=== PATIENT | male | born 1960 | race Caucasian/White ===

== ENCOUNTER 2021-05-29 13:00 | Emergency (ER) | payer OTHER, SELFPAY ==
[2021-05-29 13:11] VITALS: BP 154/92; PULSE 90; RESP 18; TEMP 37.6; O2SAT 98
--- NOTE | 2021-05-29 13:21 | ED.DENTAL ---
HPI - Dental/Oral General Chief complaint: Dental/Oral Stated complaint: tooth inf Source: patient Mode of arrival: ambulatory Limitations: no limitations History of Present Illness HPI Narrative: Patient is a 61-year-old male who presents for left lower dental pain and swelling. He reports he believes he chipped a tooth. Patient reports dental pain started proximately 2 days ago. He reports taking Tylenol ibuprofen with limited relief. He reports last p.m. swelling to left jaw. He denies fever. He denies all other complaints at this time. Related Data Home Medications Medication Instructions Recorded Confirmed No Home Medications 05/29/21 05/29/21 Allergies Allergy/AdvReac Type Severity Reaction Status Date / Time No Known Allergies Allergy Verified 05/29/21 13:23 MEPERIDINE HCL AdvReac Severe SEVERE N/V Uncoded 05/29/21 13:23 POST COLONSCOPY ANESTHESIA Review of Systems Review of Systems: CONSTITUTIONAL: Denies fever, chills, or sweats. EYES: Denies visual changes, redness, or discharge. ENT: Denies rhinorrhea, congestion, sore throat, or otalgia. Reports dental pain and swelling CARDIOVASCULAR: Denies chest pain, palpitations, or edema. RESPIRATORY: Denies cough or dyspnea. GASTROINTESTINAL: Denies abdominal pain, nausea, vomiting, or diarrhea. GENITOURINARY: Denies dysuria or hematuria. SKIN: Denies rash or itching. MUSCULOSKELETAL: Denies back pain, joint pain, or myalgia. NEUROLOGIC: Denies headache, numbness, dizziness, or weakness. PSYCHIATRIC: Denies anxiety or depression. [facility] Past Medical History Medical History Anxiety Colonic diverticular abscess Diverticulitis Family History Family History (Updated 05/29/21 @ 14:21 by ENRIQUETA Farrell) Other Diabetes mellitus Heart disease Social History Social History (Updated 05/29/21 @ 14:21 by ENRIQUETA Farrell) Smoking status: Never smoker Alcohol intake: current Substance use: never Living arrangements: with family Comments At the time of signature, I have reviewed and agree with nursing past medical, surgical, social, and family history unless otherwise noted. Please see nursing chart for further information. There is no relevant family history pertinent to the presenting complaint. Exam Narrative: GENERAL: Well-appearing, well-nourished, and in no acute distress. HEAD: Normocephalic, atraumatic. EYES: EOMI. No redness or drainage. Conjunctiva are normal. ENT: Mucous membranes pink and moist. Nares clear. No rhinorrhea. Throat normal. Uvula midline. Edema to left jaw. NECK: AROM. Supple. No lymphadenopathy. CHEST: No respiratory distress. HEART: Regular rate and rhythm. EXTREMITIES: Normal range of motion. No edema. SKIN: Warm, dry, no rash. NEURO: No focal deficits. Alert and oriented x3. Gait steady. PSYCH: Normal affect. No signs of depression or anxiety. Course Vital Signs Vital signs: Vital Signs Temperature 37.6 C 05/29/21 13:11 Pulse Rate 90 05/29/21 13:11 Respiratory Rate 18 05/29/21 13:11 Blood Pressure 154/92 H 05/29/21 13:11 Pulse Oximetry 98 05/29/21 13:11 Temperature 37.6 C 05/29/21 13:11 Pulse Rate 90 05/29/21 13:11 Respiratory Rate 18 05/29/21 13:11 Blood Pressure 154/92 H 05/29/21 13:11 Pulse Oximetry 98 05/29/21 13:11 Reviewed. Patient has been instructed to follow-up with his PCP regarding his blood pressure. MDM - Dental/Oral Differential Diagnosis Differential diagnosis: Likely gingival abscess, dental caries, toothache, dental abscess and fracture of tooth Medical Records Attestation: I reviewed the patient's medical records. Critical Care Time Critical Care Time Critical Care Time: No Discharge Plan Discharge Clinical Impression: Dental abscess Patient Disposition: Home, Self-Care Condition: Stable Instructions: Antibiotic Form, Dental Absces
== END 2021-05-29 13:36 | disposition home or self-care (01) ==
PROVIDERS: Emergency Provider Nurse Practitioner; PCP Internal Medicine
DX: K04.7 Periapical abscess without sinus (principal)
CPT/HCPCS: 99213; G0463